=== PATIENT | male | born 1980 | race Caucasian/White ===

== ENCOUNTER 2019-08-09 22:12 | Emergency (ER) | payer MEDICAID ==
[~2019-08-09] VITALS: Ht 175.3 cm; Wt 113.4 kg
[2019-08-09 22:35] VITALS: BP_SYST 125
[2019-08-09] MEDS ORDERED: MORPHINE 4 MG/ML INJ. SYRINGE IM ONE (23:00)
[2019-08-09 23:30] VITALS: BP_SYST 125
[2019-08-09] MEDS ORDERED: HYDROcodone/ACETAMIN 5-325 MG TAB (NORCO/ VICODIN) PO ONE (23:30)
== END 2019-08-09 23:30 | disposition home or self-care (01) ==
LOC: SED 22:12
DX: K64.9 Unspecified hemorrhoids (principal)
CPT/HCPCS: 99283

== ENCOUNTER 2019-08-10 16:59 | Emergency (ER) | payer MEDICAID ==
[~2019-08-10] VITALS: Ht 175.3 cm; Wt 113.4 kg
[2019-08-10 17:24] VITALS: BP_SYST 128
--- NOTE | 2019-08-10 17:25 | NUR ---
Patient to ER bed 5 to gown for evaluation. Side rails up.
--- NOTE | 2019-08-10 17:25 | NUR ---
Pt came to ER with c/o diarrhea, foul odor, and pain in rectum 09/06. Pt resting in gurney, no distress at this time, VSS.
--- NOTE | 2019-08-10 17:35 | NUR ---
ER at bedside examining patient.
[2019-08-10] MEDS ORDERED: IOHEXOL 100 ML IV ONE (18:01)
--- NOTE | 2019-08-10 18:05 | NUR ---
Patient transported to radiology via gurney, accompanied by emerson.
[2019-08-10 18:08] VITALS: BP_SYST 128
[2019-08-10 18:16] LABS: HEMATOCRIT 38.9 % (36-54); HEMOGLOBIN 12.8 g/dL (14.0-18.0); MEAN CORPUSCULAR HEMOGLOBIN 26 pg (27-31); MEAN CORPUSCULAR HGB CONC 33 % (32-36); MEAN CORPUSCULAR VOLUME 79 fL (79.0-98.0); PLATELET COUNT (AUTO) 326 K/uL (130-430); RED BLOOD CELL COUNT(AUTO) 4.95 MIL/uL (4.2-6.2); RED CELL DISTRIBUTION WIDTH 15.4 % (9.0-15.0); WHITE BLOOD COUNT (AUTO) 12.1 K/uL (4.8-10.8)
--- NOTE | 2019-08-10 18:16 | NUR ---
Returned to ER from CT
[2019-08-10 18:32] LABS: INR 1.1 (0.80-1.20)
[2019-08-10 18:40] LABS: BAND % (MANUAL) 7 % (0-6); LYMPHOCYTES % (MANUAL) 16 % (20-46)
[2019-08-10 18:41] LABS: BASOPHILS % (MANUAL) 0 % (0-2); EOSINOPHILS % (MANUAL) 1 % (0-7); METAMYELOCYTES % 1 % (0-0); MONOCYTES % (MANUAL) 17 % (0-11)
[2019-08-10 19:13] LABS: CALCIUM 8.3 mg/dL (8.4-11.0); POTASSIUM 3.2 mmol/L (3.5-5.1)
[2019-08-10 19:14] LABS: ALBUMIN 2.9 g/dL (3.4-4.8); CREATININE 1.31 mg/dL (0.55-1.30); TOTAL BILIRUBIN 0.5 mg/dL (0.0-1.0)
[2019-08-10 19:25] VITALS: BP_SYST 128
--- NOTE | 2019-08-10 19:26 | NUR ---
Patient given written and verbal discharge instructions and verbalizes understanding. ER MD discussed with patient the results and treatment provided. Patient in stable condition. ID arm band removed. IV catheter removed intact and dressing applied, no active bleeding. Rx of Mcfall and Motrin given. Patient educated on pain management and to follow up with PMD. Pain Scale 0/10. Opportunity for questions provided and answered. Medication side effect fact sheet provided.
== END 2019-08-10 19:25 | disposition home or self-care (01) ==
LOC: SED 16:59
DX: N23 Unspecified renal colic (principal); K52.9 Noninfective gastroenteritis and colitis, unspecified
CPT/HCPCS: 36415; 74177; 80053; 82150; 83605; 83690; 85007; 85027; 85610; 85730; 99285; Q9967